=== PATIENT | male | born 1955 | race Caucasian/White ===

== ENCOUNTER 2019-10-20 14:37 | Emergency (ER) | payer MEDICAID ==
--- NOTE | 2019-10-20 15:22 | EDM.PDOC ---
ED HPI GENERAL MEDICAL PROBLEM - General Chief Complaint: General Stated Complaint: LEFT SIDE PAIN Time Seen by Provider: 10/20/19 15:21 Source of Information: Reports: Patient History Limitations: Reports: No Limitations - History of Present Illness INITIAL COMMENTS - FREE TEXT/NARRATIVE: pt arrived with a history of pain in the mid abdoman. He has not had ab for 2 days. He has not been vomiting. He has taken miralax exlax and one other laxative with no results. Onset: Gradual Duration: Day(s): Location: Reports: Abdomen Associated Symptoms: Reports: No Other Symptoms Left Back Pain Score (Numeric/FACES): 8 - Related Data Allergies Allergy/AdvReac Type Severity Reaction Status Date / Time No Known Allergies Allergy Verified 10/20/19 15:00 Home Meds: Home Meds Cyclobenzaprine HCl 10 mg PO TID PRN 02/19/19 [History] Gabapentin [Neurontin] 300 mg PO TID 02/19/19 [History] HYDROmorphone HCl [Dilaudid] 8 mg PO Q4HR PRN 02/19/19 [History] LORazepam 1 mg PO Q6HR PRN 02/19/19 [History] Past Medical History HEENT History: Reports: Impaired Vision Gastrointestinal History: Reports: Chronic Constipation Musculoskeletal History: Reports: Back Pain, Chronic, Fracture Hematologic History: Reports: Blood Transfusion(s) - Infectious Disease History Infectious Disease History: Reports: Chicken Pox - Past Surgical History Male Surgical History: Reports: Other (See Below) Other Male Surgeries/Procedures: bladder toumor Musculoskeletal Surgical History: Reports: Shoulder Surgery, Other (See Below) Other Musculoskeletal Surgeries/Procedures:: back surgeryx4 fx wrist bilateral arm fracture Finger surgery Social & Family History - Tobacco Use Smoking Status *Q: Current Some Day Smoker Years of Tobacco use: 4 Packs/Tins Daily: 0.5 Used Tobacco, but Quit: No Second Hand Smoke Exposure: Yes - Caffeine Use Caffeine Use: Reports: Coffee, Tea - Alcohol Use Days Per Week of Alcohol Use: 0 - Recreational Drug Use Recreational Drug Use: No ED ROS GENERAL - Review of Systems Review Of Systems: See Below Constitutional: Reports: Decreased Appetite HEENT: Reports: No Symptoms Respiratory: Reports: No Symptoms Cardiovascular: Reports: No Symptoms Endocrine: Reports: No Symptoms GI/Abdominal: Reports: Abdominal Pain, Constipation : Reports: No Symptoms Musculoskeletal: Reports: No Symptoms Skin: Reports: No Symptoms Neurological: Reports: No Symptoms Psychiatric: Reports: No Symptoms ED EXAM, GENERAL - Physical Exam Exam: See Below Free Text/Narrative:: pt arrived with pain in the left upper abdoman and mid abdoman. He has been constipated. He took several things and he did have a very small result. Exam Limited By: No Limitations General Appearance: Alert, Anxious, Moderate Distress Ears: Normal TMs Nose: Normal Inspection Throat/Mouth: Normal Inspection Head: Atraumatic Neck: Normal Inspection Respiratory/Chest: No Respiratory Distress Cardiovascular: Regular Rate, Rhythm GI/Abdominal: Tender, Other (pt has tenderness in the upper abdomana nd mid abdoman. ) (Male) Exam: Deferred Rectal (Males) Exam: Other ( no stool was present in the rectum. No masses present. ) Back Exam: Normal Inspection, Other (t has a history of severe disc disease and is on dilaudid. ) Extremities: Normal Inspection Neurological: Alert, Oriented, Normal Cognition Psychiatric: Anxious Course - Vital Signs Last Recorded V/S: Last Vital Signs Temp 35.9 C L 10/20/19 14:58 Pulse 69 10/20/19 17:51 Resp 16 10/20/19 14:58 BP 135/92 H 10/20/19 17:51 Pulse Ox 98 10/20/19 15:55 - Orders/Labs/Meds Labs: Laboratory Tests 10/20/19 10/20/19 10/20/19 Range/Units 15:41 15:41 15:41 WBC 7.2 (4.5-11.0) K/uL RBC 5.07 (4.30-5.90) M/uL Hgb 15.7 H (12.0-15.0) g/dL Hct 47.1 (40.0-54.0) % MCV 93 (80-98) fL MCH 31 (27-31) pg MCHC 33 (32-36) % Plt Count 260 (150-400) K/uL Neut % (Auto) 60 (36-66) % Lymph % (Auto) 27 (24-44) % [place] % (Auto) 8 H (2-6) % Eos % (Auto) 5 H (2-4) % Baso % (Auto) 1 (0-1) % Sodium 137 L (140-148) mmol/L Potassium 5.0 (3.6-5.2) mmol/L Chloride 100 (100-108) mmol/L Carbon Dioxide 30 (21-32) mmol/L Anion Gap 12.0 (5.0-14.0) mmol/L BUN 23 H (7-18) mg/dL Creatinine 1.1 (0.8-1.3) mg/dL Est Cr Clr Drug Dosing 66.50 mL/min Estimated GFR (MDRD) > 60 (>60) Glucose 102 (74-106) mg/dL Calcium 9.1 (8.5-10.1) mg/dL Total Bilirubin 0.3 (0.2-1.0) mg/dL AST 26 (15-37) U/L ALT 39 (12-78) U/L Alkaline Phosphatase 69 (46-116) U/L C-Reactive Protein 0.12 (0.0-0.3) mg/dL Total Protein 7.9 (6.4-8.2) g/dL Albumin 4.0 (3.4-5.0) g/dL Globulin 3.9 H (2.3-3.5) g/dL Albumin/Globulin Ratio 1.0 L (1.2-2.2) Meds: Medications Discontinued Medications Generic Name Dose Route Start Last Admin Trade Name Freq PRN Reason Stop Dose Admin Sodium Chloride 1,000 mls @ 999 mls/hr 10/20/19 16:30 10/20/19 16:49 Normal Saline IV 999 mls/hr ASDIRECTED TEQUILA Administration Sodium Chloride 80 mls @ 3 mls/sec 10/20/19 16:30 10/20/19 16:41 Normal Saline IV 3 mls/sec ASDIRECTED TEQUILA Administration Iopamidol 115 ml 10/20/19 16:30 10/20/19 16:41 Isovue-300 (61%) IV 115 ml . DIRECTED TEQUILA Administration Magnesium Citrate 296 ml 10/20/19 17:50 10/20/19 18:00 Citrate Of Magnesia PO 10/20/19 17:51 296 ml ONETIME ONE Administration Magnesium Citrate 296 ml 10/20/19 18:02 10/20/19 18:12 Citrate Of Magnesia PO 10/20/19 18:03 296 ml ONETIME ONE Administration Sodium Chloride 10 ml 10/20/19 16:28 10/20/19 16:41 Saline Flush FLUSH 10 ml ASDIRECTED PRN Administration Keep Vein Open - Re-Assessments/Exams Free Text/Narrative Re-Assessment/Exam: 10/20/19 17:59 pt had a flat plate of the abdoman and all of his retained stool was on the rt side. He did have gas in the rectum. He had a cat scan of the abdoman which revealed several cysts in the liver and one in the rt kidney. He had alot of stool in the rt colon. He has not had a recent colonoscopy. his lab work did look good. Departure - Departure Time of Disposition: 18:15 Disposition: Home, Self-Care 01 Condition: Fair Clinical Impression: Constipation by delayed colonic transit, Lumbar disc disease - Discharge Information Instructions: Constipation, Adult Referrals: Carlos Faith MD [Primary Care Provider] - Forms: ED Department Discharge Care Plan Goals: push fluids, suggest a colonoscopy, miralax daily, high fiber diet, if pt does not have results with the mag citrate suggest repeating in the am. Sepsis Event Note - Evaluation Sepsis Screening Result: No Definite Risk - Focused Exam Date Exam was Performed: 10/24/19 Time Exam was Performed: 00:38
--- NOTE | 2019-10-20 16:10 | CR ---
Abdomen Series w Chest 1V CLINICAL HISTORY: Lower abdominal pain FINDINGS: Lungs are clear. No free air is identified. Small intestinal gas pattern is nonacute. There is moderate retained feces throughout the colon. There are severe degenerative changes in the lumbar spine with levoscoliosis. IMPRESSION: Moderate fecal retention Nonacute intestinal gas pattern
[2019-10-20] MEDS ORDERED: Sodium Chloride 0.9% 10 ML Syringe FLUSH PRN (16:28)
[2019-10-20] MEDS ORDERED: Sodium Chloride 0.9% 1,000 ML IV SCH (16:30)
[2019-10-20] MEDS ORDERED: Iopamidol 612 MG/ML 150 ML Bottle IV SCH (16:30)
[2019-10-20] MEDS ORDERED: Sodium Chloride 0.9% 80 ML IV SCH (16:30)
--- NOTE | 2019-10-20 17:47 | CRLCT ---
INDICATION: Left-sided abdominal pain. COMPARISON: Report of the MR of the lumbar spine from 12/05/2018 TECHNIQUE: CT examination of the abdomen and pelvis was performed with the uneventful intravenous administration of 100 cc of Omnipaque 350 while 3 mm thick axial sections were obtained from the lung bases through the pubic symphysis. Oral contrast was not administered. Please note that all CT scans at this facility use dose modulation, iterative reconstruction, and/or weight-based dosing when appropriate to reduce radiation dose to as low as reasonably achievable. FINDINGS: There is a moderate amount of fecal material in the right colon, extending from the cecum through the transverse colon, consistent with fecal stasis. There is relatively little fecal material in the left colon and rectum, with nothing seen that would suggest constipation. In the abdomen, the liver has a tiny cyst in the inferior aspect of the posterior segment of the right lobe, segment 6, of no clinical concern. A similar tiny cyst is seen in the inferior aspect of the lateral segment of the left lobe, segment 3, also of no clinical concern. The rest of the liver is normal in appearance. The spleen, pancreas, and adrenals are normal in appearance. A 1.5 centimeter cyst is seen in the posterior interpolar right kidney. The kidneys are otherwise normal in appearance. The gallbladder is normal in appearance. The abdominal aorta is normal in caliber with no sign of dilatation. There is no sign of retroperitoneal mass or adenopathy. The stomach, loops of small bowel, and colon in the abdomen are normal in appearance. In the pelvis, the appendix is normal in appearance with no sign of inflammatory process. The loops of small bowel and colon in the pelvis are normal in appearance. The prostate is normal in appearance. The urinary bladder is normal in appearance. There is no sign of pelvic or inguinal mass or adenopathy. There is no sign of free air or free fluid in the abdomen or pelvis. The lung bases are clear. There is mild scoliosis of the lumbar spine convex towards the left. There is previous fusion at L4-5 with absence of the disc space. The fused segments are in anatomic alignment. There is prominent disc degenerative disease throughout the rest of the lumbar spine and in the inferior thoracic spine. There is prominent sclerosis of the vertebral bodies adjacent to the disc spaces, most prominent from L2 through L4. Moderate disc bulges with posterior osteophytic ridging is seen at L1-2, L2-3, and L5-S1, probably resulting in spinal stenosis, consistent with the report of the previous MR of the lumbar spine. IMPRESSION: Nothing seen that would explain the patient`s left abdominal pain. Normal appearance of the pancreas, left urinary system, and loops of bowel in the left abdomen. CT of the abdomen shows a moderate amount of fecal material in the right colon consistent with fecal stasis, with relatively little fecal material in the right colon and rectum. Normal CT of the pelvis with contrast. Prominent disc degenerative disease throughout the lumbar spine with fusion at L4-5. Please note that all CT scans at this facility use dose modulation, iterative reconstruction, and/or weight-based dosing when appropriate to reduce radiation dose to as low as reasonably achievable. Dictated by Benton Fischer MD @ Oct 20 2019 5:30PM Signed by Dr. Benton Fischer @ Oct 20 2019 5:47PM
[2019-10-20] MEDS ORDERED: Magnesium Citrate Solution 296 ML Bottle PO ONE ×2 (17:50→18:02)
== END 2019-10-20 18:12 | disposition home or self-care (01) ==
LOC: JP.ED 14:37
DX: K59.01 Slow transit constipation (principal); M51.36 Other intervertebral disc degeneration, lumbar region; F17.210 Nicotine dependence, cigarettes, uncomplicated; Z79.899 Other long term (current) drug therapy
CPT/HCPCS: 36415; 74022; 74177; 80053; 85025; 86140; 96360; 99284; A9270; J7030; J7050; Q9967

== ENCOUNTER 2019-12-21 07:09 | Day surgery (SDC) | payer MEDICAID ==
[~2019-12-21 07:09] MED LIST: Midazolam 1 MG/ML 2 ML SDV ONE; Propofol 200 MG/20 ML SDV ONE; fentaNYL 100 MCG/2 ML SDV ONE
[2019-12-21] MEDS ORDERED: Dextrose 5%-Lactated Ringers 1,000 ML IV SCH (08:00)
[2019-12-21] MEDS ORDERED: Propofol 200 MG/20 ML SDV ONE (09:26)
--- NOTE | 2019-12-23 16:22 | OR ---
DATE OF PROCEDURE: 12/21/2019 SURGEON: Keaton Baltazar MD PREOPERATIVE DIAGNOSIS: Indication for screening colonoscopy. POSTOPERATIVE DIAGNOSIS: Single polyp in sigmoid colon. OPERATIVE PROCEDURES: Flexible colonoscopy with, 1. Polypectomy by snare technique (46547). 2. Injection of Cathleen ink at polypectomy site (51826). ANESTHESIA: IV sedation. INDICATION FOR PROCEDURE: A 64-year-old presenting for initial colonoscopy. Has no family history of colon carcinoma. Plan is to proceed with a flexible colonoscopy with polypectomy and/or biopsies as indicated. Potential risks including bleeding and perforation were discussed, and the patient wishes to proceed. DETAILS OF PROCEDURE: The patient was taken to the operating room and placed in a left lateral decubitus position. IV sedation was administered, after which the initial rectal exam was performed and was unremarkable. Colonoscope was then passed into the rectum with retroflexion revealing uncomplicated hemorrhoidal columns. The scope was then eventually passed to the cecum. The prep was fair. There was quite a bit of liquid stool present and some scattered solid stool. So, a small percentage of the mucosal surface was not entirely well visualized, perhaps leading to missing polyps up to the range of 2 to 3 mm in size. The patient was noted to have no areas of diverticular disease or colitis. A single polyp was noted, measuring around 5 to 6 cm, in the sigmoid colon, specifically around 30 cm proximal to the dentate line. This was encircled at its base and excised by means of a polypectomy snare and sent for histologic evaluation. Adjacent to the polypectomy site, 4 mL of Cathleen ink was injected submucosally to identify that area in the event that the removed polyp is malignant. The scope was then withdrawn, the above findings reconfirmed, and the procedure was concluded. The patient was taken to the recovery room in satisfactory condition. Assuming that the polyp today is benign, then a followup colonoscopy be performed in 2 years. Keaton Baltazar MD /[id number]
== END 2019-12-21 10:45 | disposition home or self-care (01) ==
LOC: JP.SDS 07:09
PROVIDERS: ATTEND Surgery
DX: Z12.11 Encounter for screening for malignant neoplasm of colon (principal); D12.5 Benign neoplasm of sigmoid colon; K64.9 Unspecified hemorrhoids; F17.210 Nicotine dependence, cigarettes, uncomplicated; Z88.6 Allergy status to analgesic agent
CPT/HCPCS: 45381; 45385; 88305; J2250; J2704; J3010; J7121